=== PATIENT | male | born 1980 | race Caucasian/White ===

== ENCOUNTER 2022-06-24 10:31 | Emergency (ER) | payer OTHER ==
[~2022-06-24] VITALS: Ht 182.9 cm; Wt 59.0 kg
[~2022-06-24 10:31] MED LIST: CETI5 PO
== END 2022-06-24 12:03 | disposition home or self-care (01) ==
LOC: ER 10:31
DX: S61.012A Laceration without foreign body of left thumb without damage to nail, initial encounter (principal); F17.200 Nicotine dependence, unspecified, uncomplicated; W26.0XXA Contact with knife, initial encounter
CPT/HCPCS: 90714